=== PATIENT | male | born 1945 | race Caucasian/White ===

== ENCOUNTER 2018-08-07 10:50 | Emergency (ER) | payer MEDICARE, BC, SELFPAY ==
[2018-08-07 10:50] VITALS: BP 154/89; PULSE 68; RESP 16; TEMP 36.6; O2SAT 97; BMI 35.4
--- NOTE | 2018-08-07 11:01 | PC.NURSE ---
Patient slept on a Air mattress friday and woke friday with left lower back/hip pain. Patient states pain worse with trying to lift left leg. Patient able to ambulate with minimal discomfort but unable to lift left leg up onto bed or bend to tie shoes without discomfort in left lower back/hip
--- NOTE | 2018-08-07 11:02 | ED.BACK ---
HPI - Back Pain/Injury General Chief Complaint: Back Pain/Injury Stated Complaint: left hip pain,difficulty lifting leg Time Seen by Provider: 08/07/18 11:00 Source: patient Mode of arrival: ambulatory Limitations: no limitations History of Present Illness HPI Narrative: Patient is a 72-year-old male who presents with all left back pain. He says it hurts every time he moves his left leg. It has been ongoing for the last 4 days. 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 The Friday night he slept on an air mattress at his son's. He denies numbness or tingling no loss of bowel or urine. He has been taking Tylenol without any relief. He did not fall no known injury. MD Complaint: back pain Onset (ago): day(s) (4) Duration: constant Location: lumbar spine Severity: mild Quality: aching Exacerbating factors: none Related Data Previous Rx's Medication Instructions Recorded cyclobenzaprine 5 mg PO Q12HR PRN #10 tab 08/07/18 Allergies Allergy/AdvReac Type Severity Reaction Status Date / Time No Known Drug Allergies Allergy Verified 08/07/18 11:49 Review of Systems Review of Systems ROS Unobtainable: All systems reviewed & are unremarkable except as noted in HPI and below Constitutional Denies chills, Denies fever(s), Denies lethargy and Denies weakness ENT Ears, Nose, Mouth, and Throat: Denies neck pain Cardiovascular Denies chest pain, Denies irregular heart rhythm, Denies lightheadedness, Denies palpitations and Denies orthopnea Musculoskeletal Reports as per HPI, Reports back pain, Denies neck pain, Denies numbness and Denies tingling Integumentary/Breasts Denies pruritus, Denies erythema, Denies rash and Denies wounds Neurologic Denies numbness, Denies tingling and Denies weakness Endocrine Denies palpitations [facility] Medical History Diabetes (Acute) Hyperlipidemia (Acute) Hypertension (Acute) Social History Smoking Status: Never smoker Social History Smoking Status: Never smoker Exam Initial Vital Signs Initial Vital Signs: Vital Signs Temperature 97.8 F 08/07/18 10:50 Pulse Rate 68 08/07/18 10:50 Respiratory Rate 16 08/07/18 10:50 Blood Pressure 154/89 H 08/07/18 10:50 Pulse Oximetry 97 08/07/18 10:50 GENERAL: Well-appearing, well-nourished and in no acute distress. HEENT: Head atraumatic,EOMI, pupils reactive, face symmetric, moist mucous membranes CARDIOVASCULAR: Regular rate and rhythm without murmurs, rubs or gallops. RESPIRATORY: Breath sounds equal bilaterally, no wheezes rales or rhonchi. ABDOMEN: Soft, nontender. Normoactive bowel sounds all 4 quadrants. No guarding or rebound. BACK: No return rule tenderness no step-offs mild lower paraspinal left pain. Tender to palpation. Reproducible with movement. Sensation in lower extremities intact EXTREMITIES: Normal range of motion, no clubbing or edema. Neurovascularly intact -left lower extremity straight leg test able to lift left leg at least 30? of right leg moves eat more easily. No pain with hip internal and external rotation NEUROLOGICAL: Alert and oriented x4.Normal gait and speech. Cranial nerves II through XII grossly intact. SKIN: Warm, dry, no laceration, no petechiae, no rashes or lesions. Course Orders Ordered: Discontinued Medications Ketorolac Tromethamine (Toradol) 30 mg IM NOW ONE Stop: 08/07/18 11:01 Last Admin: 08/07/18 11:22 Dose: 30 mg Vital Signs - 8 hr 08/07/18 10:50 08/07/18 11:45 Temperature 97.8 F Pulse Rate 68 61 Respiratory Rate 16 16 Blood Pressure 154/89 H Blood Pressure [Left Arm] 138/74 Pulse Oximetry 97 99 Discharge Plan Departure Patient Disposition: Home Clinical Impression: Strain of lumbar region Qualifiers: Encounter type: initial encounter Qualified Code(s): S39.012A - Strain of muscle, fascia and tendon of lower back, initial encounter Discharge Date/Time: 08/07/18 11:49 Interventions: ED Discharge Assessment Last Done: 08/07/18 11:48 Instructions: DI for Back Strain or Sprain Activity Restrictions/Additional Instructions: *You have been diagnosed with low back strain *What to do: Light active he is encouraged, possible light stretching and light walking. No lifting more than 10 lb no strenuous activity *Continue to take medications as directed Ibuprofen 600 mg every 6 hours if needed for pain Flexeril 5 mg every 12 hours if needed for muscle spasm specially before bed-does cause drowsiness *Follow up with your primary care provider in 2-3 days *Return to ER if you should have numbness, tingling, weakness of legs or any new, worsening or concerning symptoms Prescriptions: New cyclobenzaprine 5 mg tablet 5 mg PO Q12HR PRN (Reason: muscle spasm) Qty: 10 RF: 0
[2018-08-07] MEDS: KETOROLAC 60 MG/2 ML VIAL 30 MG IM (11:22)
[2018-08-07 11:45] VITALS: BP 138/74; PULSE 61; RESP 16; O2SAT 99
== END 2018-08-07 11:49 | disposition home or self-care (01) ==
PROVIDERS: Emergency Provider Emergency Medicine
DX: S39.012A Strain of muscle, fascia and tendon of lower back, initial encounter (principal)
CPT/HCPCS: 96372; 99282; 99283; J1885